=== PATIENT | male | born 1950 | race Caucasian/White ===

== ENCOUNTER → 2016-12-02 | Outpatient (REF) ==
[~2016-12-02] MED LIST: ANUSOL-HC2.5% RC; LOPRESSOR 550 MG/TAB PO; NORCO 325 MG-51 TAB PO; PRILOSEC 20MG20 MG PO; PRINZIDE 12.5 M1 TAB PO
== END ==
LOC: ZLAB.WCH 18:13
DX: Z01.89 Encounter for other specified special examinations (principal)
CPT/HCPCS: G0103

== ENCOUNTER 2017-05-06 14:13 | Inpatient (IN) | payer MEDICARE, BC ==
[~2017-05-06] VITALS: Ht 177.8 cm; Wt 88.4 kg
[2017-07-21] VITALS (12 sets, daily range): BP systolic 111–159; BP diastolic 52–85; PULSE 67–98; TEMP 97.2–98.2
[2017-07-21] MEDS ORDERED: TYLENOL 500MG500 MG PO (06:40)
[2017-07-22 04:18] VITALS: BP 126/65; PULSE 81; TEMP 98
[2017-07-22 06:59] LABS: HEMATOCRIT 26.2 % (42.0-52.0); HEMOGLOBIN 9.1 g/dl (13.5-18.0)
[2017-07-22 07:28] VITALS: BP 140/72; PULSE 88; TEMP 97.8
[2017-07-22 11:13] VITALS: BP 115/56; PULSE 73; TEMP 98.1
[2017-07-22 15:17] VITALS: BP 127/62; PULSE 91; TEMP 99
[2017-07-22 20:11] VITALS: BP 164/74; PULSE 109; TEMP 98.3
[2017-07-23 00:26] VITALS: BP 141/67; PULSE 84; TEMP 98.3
[2017-07-23 04:29] VITALS: BP 104/69; PULSE 89; TEMP 98.5
[2017-07-23 07:22] VITALS: BP 116/63; PULSE 90; TEMP 98.1
[2017-07-23 11:10] VITALS: BP 122/49; PULSE 75; TEMP 98.7
[2017-07-23] MEDS ORDERED: NORCO 325 MG-7.1 TAB PO (15:01)
[2017-07-23] MEDS ORDERED: TYLENOL 500MG500 MG PO (15:02)
[2017-07-23] MEDS ORDERED: ROXICODONE 55 MG/TAB PO (15:02)
[2017-07-23] MEDS ORDERED: SENOKOT S 50 MG1 TAB PO (15:03)
[2017-07-23 15:49] VITALS: BP 125/61; PULSE 112; TEMP 99.3
[2017-07-23 19:27] VITALS: BP 131/57; PULSE 121; TEMP 98.6; TEMP 99.6
[2017-07-24 00:15] VITALS: BP 105/45; PULSE 83; TEMP 97.4
[2017-07-24 03:59] VITALS: BP 130/71; PULSE 97; TEMP 97.5
[2017-07-24 07:39] VITALS: BP 134/61; PULSE 71; TEMP 98.2
[2017-07-24 09:59] VITALS: BP 134/61; PULSE 71; TEMP 98.2
== END 2017-07-24 11:28 | disposition swing bed (61) | DRG 470 ==
LOC: JCC 07-21 06:06
PROVIDERS: Orthopaedic Surgery
PROC: 0SRC0J9 Replacement of Right Knee Joint with Synthetic Substitute, Cemented, Open Approach (ICD-10-PCS; principal; 2017-07-21 10:30)
DX: M17.11 Unilateral primary osteoarthritis, right knee (principal)
CPT/HCPCS: A4315; A9284; C1713; C1776; J0690; J1100; J2250; J2270; J2405; J2704; J3010; J7120; L1830

== ENCOUNTER → 2017-07-10 | Outpatient (CLI) | payer MEDICARE, BC ==
[2017-07-10 13:21] LABS: HIV 1/2 Antibodies Non-Reactive; HIV-1p24 Antigen Non-Reactive
== END ==
LOC: COL.LAB 11:56
PROVIDERS: Orthopaedic Surgery
DX: Z01.812 Encounter for preprocedural laboratory examination (principal); M17.11 Unilateral primary osteoarthritis, right knee

== ENCOUNTER 2017-09-24 12:42 | Day surgery (SDC) | payer MEDICARE, BC ==
[~2017-09-24] VITALS: Ht 177.8 cm; Wt 86.0 kg
[~2017-09-24 12:42] MED LIST changes: -LOPRESSOR 550 MG/TAB PO; +LOPRESSOR100 MG PO; +NORCO 325 MG-7.1 TAB PO; +ROXICODONE 55 MG/TAB PO; +SENOKOT S 50 MG1 TAB PO; +TYLENOL 500MG500 MG PO
[2017-09-24] MEDS ORDERED: STOOL SOFTENER100 M2 PO (12:57)
[2017-09-24] MEDS ORDERED: COUMADIN 5MG5 MG/TAB PO (13:01)
[2017-09-24 13:19] VITALS: BP 152/82; PULSE 72; TEMP 97.9
[2017-09-24 13:29] LABS: INR 1.9 (0.8-3.0); PROTHROMBIN TIME 22.6 SECONDS (9.7-12.8)
[2017-09-24 13:35] LABS: POTASSIUM 4.3 mmol/L (3.4-5.0)
[2017-09-24 14:09] LABS: THYROID STIMULATING HORMONE 0.819 uIU/mL (0.465-4.680)
== END 2017-09-24 16:00 | disposition home or self-care (01) ==
LOC: COL.CAR 12:42
PROVIDERS: Internal Medicine Interventional Cardiology
DX: I48.0 Paroxysmal atrial fibrillation (principal); Z88.0 Allergy status to penicillin; Z96.651 Presence of right artificial knee joint; Z79.01 Long term (current) use of anticoagulants; Z53.8 Procedure and treatment not carried out for other reasons

== ENCOUNTER → 2017-12-25 | Outpatient (CLI) | payer MEDICARE, BC ==
[~2017-12-25] MED LIST changes: +COUMADIN 5MG5 MG/TAB PO; +STOOL SOFTENER100 M2 PO
[2017-12-25 10:54] LABS: HIV 1/2 Antibodies Non-Reactive; HIV-1p24 Antigen Non-Reactive
== END ==
LOC: COL.LAB 09:42
PROVIDERS: Orthopaedic Surgery
DX: Z01.818 Encounter for other preprocedural examination (principal); M17.12 Unilateral primary osteoarthritis, left knee

== ENCOUNTER 2018-02-18 05:09 | Day surgery (SDC) | payer MEDICARE, BC ==
[~2018-02-18] VITALS: Ht 175.3 cm; Wt 95.0 kg
[~2018-02-18 05:09] MED LIST changes: +COUMADIN 22.5 MG/TAB PO
[2018-02-18 05:52] VITALS: BP 127/76; PULSE 101; TEMP 97.5
[2018-02-18] MEDS ORDERED: COUMADIN 2MG2 MG/TAB PO (05:59)
[2018-02-18] MEDS ORDERED: COUMADIN4 MG PO (06:01)
[2018-02-18] MEDS ORDERED: PRINZIDE 12.5 M1 TAB PO (06:02)
[2018-02-18] MEDS ORDERED: LOPRESSOR100 MG PO (06:04)
[2018-02-18] MEDS ORDERED: TYLENOL 8 HR PO (06:06)
[2018-02-18 07:17] VITALS: BP 113/71; PULSE 102; TEMP 98
[2018-02-18 07:30] VITALS: BP 142/85; PULSE 104
[2018-02-18 07:45] VITALS: BP 147/88; PULSE 100
== END 2018-02-18 08:10 | disposition home or self-care (01) ==
LOC: SDCO 05:09
DX: M25.662 Stiffness of left knee, not elsewhere classified (principal); K21.9 Gastro-esophageal reflux disease without esophagitis; M19.90 Unspecified osteoarthritis, unspecified site; D64.9 Anemia, unspecified; Z79.01 Long term (current) use of anticoagulants; Z88.0 Allergy status to penicillin; Z96.653 Presence of artificial knee joint, bilateral; Z90.49 Acquired absence of other specified parts of digestive tract
CPT/HCPCS: J1100; J1885; J2704; J7120

== ENCOUNTER 2018-07-20 12:31 | Day surgery (SDC) | payer MEDICARE, BC ==
[~2018-07-20] VITALS: Ht 175.3 cm; Wt 107.7 kg
[~2018-07-20 12:31] MED LIST changes: +COUMADIN 2MG2 MG/TAB PO; +COUMADIN4 MG PO; +TYLENOL 8 HR PO
[2018-07-20 13:18] LABS: POTASSIUM 4.1 mmol/L (3.4-5.0)
--- NOTE | 2018-07-20 13:23 | NUR ---
Initial visit; Patient thanked [employer] for offering prayer and encouragement prior to his 'Procedure'.
[2018-07-20 13:24] VITALS: BP 131/84; PULSE 87; TEMP 98
[2018-07-20 13:43] LABS: INR 1.1 (0.8-3.0); PROTHROMBIN TIME 12.6 SECONDS (9.7-12.8)
[2018-07-20] MEDS ORDERED: PACERONE200 MG PO (13:43)
[2018-07-20 13:52] LABS: THYROID STIMULATING HORMONE 1.88 uIU/mL (0.465-4.680)
--- NOTE | 2018-07-20 14:35 | NUR ---
Report received from Adriel ballesteros.
[2018-07-20 15:12] VITALS: BP 126/88; PULSE 88
[2018-07-20 15:30] VITALS: BP 120/82; PULSE 95
--- NOTE | 2018-07-20 15:30 | NUR ---
Called Dr Goins,reviewed post cardioversion EKG.Order received to discharge home.Apt in office tomorrow.
[2018-07-20 15:40] VITALS: BP 127/64; PULSE 86
[2018-07-20 16:00] VITALS: BP 123/72; PULSE 83
[2018-07-20 16:15] VITALS: BP 130/88; PULSE 86
--- NOTE | 2018-07-20 16:33 | NUR ---
Discharge instructions given to pt.pt verbalizes understanding.INT removed,catheter tip intact.Pt escorted out via wheelchair.
== END 2018-07-20 16:37 | disposition home or self-care (01) ==
LOC: COL.CAR 12:31
PROVIDERS: Internal Medicine Interventional Cardiology
DX: I48.0 Paroxysmal atrial fibrillation (principal); Z79.01 Long term (current) use of anticoagulants; Z79.899 Other long term (current) drug therapy; Z95.818 Presence of other cardiac implants and grafts; I10 Essential (primary) hypertension; E66.9 Obesity, unspecified; Z68.32 Body mass index [BMI] 32.0-32.9, adult
CPT/HCPCS: J7030